=== PATIENT | male | born 1965 | race Caucasian/White ===

== ENCOUNTER 2016-06-12 08:59 | Emergency (ER) | payer OTHER, BC ==
[~2016-06-12] VITALS: Ht 177.8 cm; Wt 72.6 kg
[2016-06-12] MEDS ORDERED: ACETAMINOPHEN 500 MG TABLET PO ONE (09:45)
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
[2016-06-12] MEDS ORDERED: DIPHTH,PERTUSS(ACELL),TET TOX 0.5 ML DISP.SYRIN. VAX IM ONE (10:00)
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
--- NOTE | 2016-06-12 12:49 | RAD ---
CT of the left knee without contrast, 06/02/2016: History: Tibial fracture Noncontrast scans were obtained with multiplanar reconstructions produced. 3-D bony reconstruction were also produced. There is a comminuted fracture of the proximal tibia. There is greatest involvement of the lateral tibial plateau where there are multiple depressed fracture fragments posteriorly. The fracture lines extend into the region of the tibial spines where there is mild posterior displacement of the lateral aspect of a moderate-sized fracture fragment. There is also disruption of the articular surface of the medial tibial plateau anterolaterally. No fibular fracture is seen. The distal femur is intact. The patella is incompletely delineated on these scans but no fracture is seen. There is a large lipohemarthrosis at the knee joint. IMPRESSION: Extensively comminuted fracture of the proximal left tibia as described above. PQRS Compliance Statement: One or more of the following individualized dose reduction techniques were utilized for this examination: 1. Automated exposure control 2. Adjustment of the mA and/or kV according to patient size 3. Use of iterative reconstruction technique
[2016-06-12 14:47] VITALS: BP 125/75
== END 2016-06-12 14:25 | disposition home or self-care (01) ==
LOC: ER 08:59
DX: S82.142A Displaced bicondylar fracture of left tibia, initial encounter for closed fracture (principal); S93.402A Sprain of unspecified ligament of left ankle, initial encounter; S20.212A Contusion of left front wall of thorax, initial encounter; F17.220 Nicotine dependence, chewing tobacco, uncomplicated; V28.4XXA Motorcycle driver injured in noncollision transport accident in traffic accident, initial encounter; Y93.55 Activity, bike riding; Y92.410 Unspecified street and highway as the place of occurrence of the external cause; Y99.8 Other external cause status
CPT/HCPCS: 29505; 71101; 73564; 73590; 73700; 90471; 90715; 99284-25